=== PATIENT | male | born 1955 | race Caucasian/White ===

== ENCOUNTER 2022-06-22 17:01 | Inpatient (IN) | payer MEDICARE, OTHER ==
--- NOTE | 2022-06-22 17:12 | ED ---
General Adult HPI - General Stated complaint: sob Time Seen by Provider: 06/22/22 17:03 Source: patient, EMS, RN notes reviewed Mode of arrival: EMS Limitations: no limitations - History of Present Illness Initial comments: Patient is a pleasant 66-year-old male presenting to the emergency department with difficulty in breathing. Patient has had mild symptoms over the past 1-2 months. Symptoms worsened significantly the past couple of days. No fever. Occasional cough with sputum however unclear what color. Patient has occasional mild tightness in his chest. No leg pain or leg swelling. No fevers. No history of similar symptoms previously. No history of previous lung disease. - Related Data Home Medications Medication Instructions Recorded Confirmed No Known Home Medications 06/22/22 06/22/22 Allergies Allergy/AdvReac Type Severity Reaction Status Date / Time No Known Allergies Allergy Verified 06/22/22 18:52 Review of Systems ROS Statement: Those systems with pertinent positive or pertinent negative responses have been documented in the HPI. ROS Other: All systems not noted in ROS Statement are negative. 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 Absent: tenderness Extremities exam: Present: normal inspection. Absent: pedal edema, calf tenderness Back exam: Present: normal inspection Neurological exam: Present: alert Psychiatric exam: Present: normal affect, normal mood Skin exam: Present: normal color Course Vital Signs 06/22/22 06/22/22 06/22/22 17:03 17:11 17:33 Temperature 97.9 F Pulse Rate 114 H 110 H Respiratory 24 24 20 Rate Blood Pressure 147/90 113/61 O2 Sat by Pulse 89 L 96 Oximetry 06/22/22 06/22/22 18:36 19:26 Temperature Pulse Rate 105 H 104 H Respiratory 18 20 Rate Blood Pressure 129/76 135/84 O2 Sat by Pulse 95 93 L Oximetry EKG Findings - EKG Comments: EKG Findings:: Sinus tachycardia 114. TX 142. QRS 85. QT 275. QTc 343. Normal axis. Normal QRS. Nonspecific T waves. Premature supraventricular complex as are present. Medical Decision Making - Medical Decision Making Patient reevaluated. Patient updated. Case discussed with Dr. Robert, who will admit covered Dr. Canseco. Dr. quesada did see patient in the ed, updated on ct - Lab Data Result diagrams: 06/22/22 17:29 06/22/22 17:29 Lab Results 06/22/22 06/22/22 06/22/22 Range/Units 17:29 17:29 17:29 WBC 12.5 H (3.8-10.6) k/uL RBC 4.72 (4.30-5.90) m/uL Hgb 14.1 (13.0-17.5) gm/dL Hct 43.6 (39.0-53.0) % MCV 92.4 (80.0-100.0) fL MCH 29.8 (25.0-35.0) pg MCHC 32.3 (31.0-37.0) g/dL RDW 13.1 (11.5-15.5) % Plt Count 190 (150-450) k/uL MPV 6.8 Neutrophils % 80 % Lymphocytes % 12 % Monocytes % 5 % Eosinophils % 2 % Basophils % 0 % Neutrophils # 10.0 H (1.3-7.7) k/uL Lymphocytes # 1.5 (1.0-4.8) k/uL Monocytes # 0.6 (0-1.0) k/uL Eosinophils # 0.3 (0-0.7) k/uL Basophils # 0.1 (0-0.2) k/uL PT (9.0-12.0) sec INR (<1.2) APTT (22.0-30.0) sec D-Dimer (<0.60) mg/L FEU Sodium 139 (137-145) mmol/L Potassium 4.0 (3.5-5.1) mmol/L Chloride 108 H (98-107) mmol/L Carbon Dioxide 20 L (22-30) mmol/L Anion Gap 11 mmol/L BUN 12 (9-20) mg/dL Creatinine 0.80 (0.66-1.25) mg/dL Est GFR (CKD-EPI)AfAm >90 (>60 ml/min/1.73 sqM) Est GFR (CKD-EPI)NonAf >90 (>60 ml/min/1.73 sqM) Glucose 133 H (74-99) mg/dL Plasma Lactic Acid Kevin 1.7 (0.7-2.0) mmol/L Calcium 8.8 (8.4-10.2) mg/dL Total Bilirubin 0.8 (0.2-1.3) mg/dL AST 73 H (17-59) U/L ALT 56 H (4-49) U/L Alkaline Phosphatase 125 (38-126) U/L Troponin I (0.000-0.034) ng/mL NT-Pro-B Natriuret Pep pg/mL Total Protein 7.1 (6.3-8.2) g/dL Albumin 3.9 (3.5-5.0) g/dL Coronavirus (PCR) (Not Detectd) Influenza Type A RNA (Not Detectd) Influenza Type B (PCR) (Not Detectd) 06/22/22 06/22/22 06/22/22 Range/Units 17:29 17:29 17:29 WBC (3.8-10.6) k/uL RBC (4.30-5.90) m/uL Hgb (13.0-17.5) gm/dL Hct (39.0-53.0) % MCV (80.0-100.0) fL MCH (25.0-35.0) pg MCHC (31.0-37.0) g/dL RDW (11.5-15.5) % Plt Count (150-450) k/uL MPV Neutrophils % % Lymphocytes % % Monocytes % % Eosinophils % % Basophils % % Neutrophils # (1.3-7.7) k/uL Lymphocytes # (1.0-4.8) k/uL Monocytes # (0-1.0) k/uL Eosinophils # (0-0.7) k/uL Basophils # (0-0.2) k/uL PT (9.0-12.0) sec INR (<1.2) APTT (22.0-30.0) sec D-Dimer (<0.60) mg/L FEU Sodium (137-145) mmol/L Potassium (3.5-5.1) mmol/L Chloride (98-107) mmol/L Carbon Dioxide (22-30) mmol/L Anion Gap mmol/L BUN (9-20) mg/dL Creatinine (0.66-1.25) mg/dL Est GFR (CKD-EPI)AfAm (>60 ml/min/1.73 sqM) Est GFR (CKD-EPI)NonAf (>60 ml/min/1.73 sqM) Glucose (74-99) mg/dL Plasma Lactic Acid Kevin (0.7-2.0) mmol/L Calcium (8.4-10.2) mg/dL Total Bilirubin (0.2-1.3) mg/dL AST (17-59) U/L ALT (4-49) U/L Alkaline Phosphatase (38-126) U/L Troponin I 0.113 H* (0.000-0.034) ng/mL NT-Pro-B Natriuret Pep 499 pg/mL Total Protein (6.3-8.2) g/dL Albumin (3.5-5.0) g/dL Coronavirus (PCR) (Not Detectd) Influenza Type A RNA Not Detected (Not Detectd) Influenza Type B (PCR) Not Detected (Not Detectd) 06/22/22 06/22/22 Range/Units 17:29 18:45 WBC (3.8-10.6) k/uL RBC (4.30-5.90) m/uL Hgb (13.0-17.5) gm/dL Hct (39.0-53.0) % MCV (80.0-100.0) fL MCH (25.0-35.0) pg MCHC (31.0-37.0) g/dL RDW (11.5-15.5) % Plt Count (150-450) k/uL MPV Neutrophils % % Lymphocytes % % Monocytes % % Eosinophils % % Basophils % % Neutrophils # (1.3-7.7) k/uL Lymphocytes # (1.0-4.8) k/uL Monocytes # (0-1.0) k/uL Eosinophils # (0-0.7) k/uL Basophils # (0-0.2) k/uL PT 11.1 (9.0-12.0) sec INR 1.0 (<1.2) APTT 18.8 L (22.0-30.0) sec D-Dimer 15.31 H (<0.60) mg/L FEU Sodium (137-145) mmol/L Potassium (3.5-5.1) mmol/L Chloride (98-107) mmol/L Carbon Dioxide (22-30) mmol/L Anion Gap mmol/L BUN (9-20) mg/dL Creatinine (0.66-1.25) mg/dL Est GFR (CKD-EPI)AfAm (>60 ml/min/1.73 sqM) Est GFR (CKD-EPI)NonAf (>60 ml/min/1.73 sqM) Glucose (74-99) mg/dL Plasma Lactic Acid Kevin (0.7-2.0) mmol/L Calcium (8.4-10.2) mg/dL Total Bilirubin (0.2-1.3) mg/dL AST (17-59) U/L ALT (4-49) U/L Alkaline Phosphatase (38-126) U/L Troponin I (0.000-0.034) ng/mL NT-Pro-B Natriuret Pep pg/mL Total Protein (6.3-8.2) g/dL Albumin (3.5-5.0) g/dL Coronavirus (PCR) Not Detected (Not Detectd) Influenza Type A RNA (Not Detectd) Influenza Type B (PCR) (Not Detectd) - Radiology Data Radiology results: report reviewed (CT positive for large bilateral pulmonary emboli, no cardiac strain as discussed with radiologist. Also infiltrates), image reviewed (Chest x-ray shows some increase in interstitial density in the left side) Critical Care Time Critical Care Time: Yes Total Critical Care Time: 32 Disposition Clinical Impression: Pulmonary embolism, Pneumonia Disposition: ADMITTED IP TO THIS HOSP Condition: Serious Is patient prescribed a controlled substance at d/c from ED?: No Referrals: Jakob Canseco MD [Primary Care Provider] - 1-2 days Time of Disposition: 20:56
[2022-06-22 17:37] LABS: Basophils # (A) 0.1 k/uL (0-0.2); Basophils % (A) 0 %; Eosinophils # (A) 0.3 k/uL (0-0.7); Eosinophils % (A) 2 %; HCT 43.6 % (39.0-53.0); HGB 14.1 gm/dL (13.0-17.5); Lymphocytes # (A) 1.5 k/uL (1.0-4.8); Lymphocytes % (A) 12 %; MCH 29.8 pg (25.0-35.0); MCHC 32.3 g/dL (31.0-37.0); MCV 92.4 fL (80.0-100.0); Mean Platelet Volume 6.8; Monocytes # (A) 0.6 k/uL (0-1.0); Monocytes % (A) 5 %; Neutrophils % (A) 80 %; Platelet Count 190 k/uL (150-450); RBC 4.72 m/uL (4.30-5.90); RDW 13.1 % (11.5-15.5); WBC 12.5 k/uL (3.8-10.6)
[2022-06-22 17:46] LABS: ALT 56 U/L (4-49); AST 73 U/L (17-59); African American GFR (CKD) >90 (>60 ml/min/1.73 sqM); Albumin 3.9 g/dL (3.5-5.0); Alkaline Phosphatase 125 U/L (38-126); Anion Gap 11 mmol/L; Blood Urea Nitrogen 12 mg/dL (9-20); Calcium 8.8 mg/dL (8.4-10.2); Carbon Dioxide 20 mmol/L (22-30); Chloride 108 mmol/L (98-107); Glucose 133 mg/dL (74-99); Non-African American GFR(CKD) >90 (>60 ml/min/1.73 sqM); Sodium 139 mmol/L (137-145); Total Bilirubin 0.8 mg/dL (0.2-1.3); Total Protein 7.1 g/dL (6.3-8.2)
--- NOTE | 2022-06-22 18:11 | XR ---
EXAMINATION TYPE: XR chest 2V DATE OF EXAM: 06/22/2022 COMPARISON: NONE HISTORY: Short of breath TECHNIQUE: 2 views FINDINGS: There is coarse interstitial density in the lungs. Heart size is normal. No heart failure. No pleural effusion. IMPRESSION: There is some coarse predominantly interstitial infiltrate in the left lung more than the right. No heart failure seen. This could be acute pneumonia.
[2022-06-22 19:25] LABS: Prothrombin Time 11.1 sec (9.0-12.0)
[2022-06-22 19:35] LABS: Partial Thromboplastin Time 18.8 sec (22.0-30.0)
--- NOTE | 2022-06-22 20:39 | CT ---
EXAMINATION TYPE: CT angio chest DATE OF EXAM: 06/22/2022 COMPARISON: None HISTORY: Dyspnea CT DLP: 514.4 mGycm Automated exposure control for dose reduction was used. CONTRAST: Performed with IV Contrast, patient injected with 100 mL of Isovue 370. There are 3-D post processed images. There is patchy bilateral pulmonary interstitial and airspace infiltrates. There is some coalescent d ensity left upper lobe. No mediastinal adenopathy. Thoracic aorta is intact. No aneurysm. No dissecti on. There are multiple large filling defects in the pulmonary arteries. Emboli are larger on the righ t side compared to the left. There is involvement of the upper and lower lobes. The bony thorax is intact. Sternum is intact. IMPRESSION: Multiple large bilateral pulmonary emboli. No evidence of right heart strain. No evidence of any sign ificant cardiomegaly. Bilateral patchy pneumonia. The exam was discussed with emergency room attending staff at 8:35 PM.
[2022-06-22] MEDS ORDERED: HEPARIN SODIUM 1,000 UN/ML (10ML VL) IV PRN (20:45)
[2022-06-22] MEDS ORDERED: HEPARIN SODIUM 1,000 UN/ML (10ML VL) IV ONE (20:45)
[2022-06-22] MEDS ORDERED: AZITHROMYCIN 500 MG in SODIUM CHLORIDE 0.9% 250 ML IVPB STA (20:57)
[2022-06-22] MEDS ORDERED: IPRATROPIUM-ALBUTEROL 3 ML NEB INHALATION PRN (20:57)
[2022-06-22] MEDS ORDERED: PNEUMONIA PROTOCOL UTILIZED 1 EACH MISC PO PRN (20:57)
[2022-06-22] MEDS: HEPARIN SOD,PORK IN 0.45% NACL 25,000 UNIT in 0.45% NACL 1 250ML.BAG IV SCH (21:01)
--- NOTE | 2022-06-22 22:38 | P.HPIM ---
History of Present Illness H&P Date: 06/22/22 The patient is a 66-year-old male with no known PMH who presents to the emergency room with complaints of shortness of breath. The patient reports that he has been experiencing gradually worsening exercise tolerance over the past 2 months, but reports that earlier today as he was performing some errands, she suddenly developed severe shortness of breath, prompted him to call 911. He checked his SpO2 at home which was no mid 80s, which was subsequently confirmed by EMS upon arrival. The patient denied experiencing chest discomfort. Reports a mild nonproductive cough also ongoing for the past 2 months. Denied nausea, vomiting, diaphoresis, fever, chills. Denied experiencing lower extremity swelling or pain. Chest CTA in the emergency room revealed multiple large bilateral pulmonary emboli with no evidence of right heart strain and no evidence of significant cardiomegaly. There was bilateral patchy pneumonia noted. EKG reveals sinus tachycardia with PVCs at 1 14 bpm with T-wave f lattening in leads V4 to V6 and inversion in leads 3 and aVF. The patient denied personal or family history of blood clots. Denied recent travel or prolonged immobilization. Laboratory evaluation was remarkable for troponin of 0.113, W count 12.5, with the coronavirus PCR negative. Review of systems: Pertinent positives and negatives as discussed in HPI, a complete review of systems was performed and all other systems are negative. Physical examination: General: non toxic, no distress, appears at stated age, obese Derm: no unusual rashes/lesions, warm Head: atraumatic, normocephalic, symmetric Eyes: EOMI, no lid lag, anicteric sclera, pupils equal round reactive to light ENT: Nose and ears atraumatic Neck: No cervical lymphadenopathy, trachea midline, supple Mouth: no lip lesion, mucus membranes moist Cardiovascular: S1S2 reg, no murmur, positive dorsalis pedis pulse bilateral, no edema Lungs: CTA bilateral, no rhonchi, no rales, no accessory muscle use Abdominal: soft, nontender to palpation, no guarding Ext: muscle strength 5 out of 5 in all 4 extremities grossly, no gross muscle atrophy, no contractures, Neuro: CN II-XI grossly intact, no gross focal neuro deficits Psych: Alert, oriented, appropriate affect Assessment/plan Acute large bilateral unprovoked pulmonary emboli -Patient started on heparin infusion -Unclear etiology as patient denied any family history of blood clots and he is a lifelong nonsmoker -Pulmonary consulted Acute hypoxic respiratory failure -As per above Community-acquired pneumonia -Continue with azithromycin and ceftriaxone DVT prophylaxis -Heparin infusion The patient is admitted with an anticipated greater than 2 midnight stay for evaluation of acute PE CODE STATUS: Full Code Discussed with: Patient Anticipated discharge date: 06/[address]: Home Past Medical History Past Medical History: No Reported History History of Any Multi-Drug Resistant Organisms: None Reported Past Surgical History: No Surgical Hx Reported Additional Past Surgical History / Comment(s): 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, laser eye surgery, Past Psychological History: No Psychological Hx Reported Smoking Status: Never smoker Past Alcohol Use History: Occasional Past Drug Use History: None Reported - Past Family History Mother Family Medical History: Hyperlipidemia Medications and Allergies Home Medications Medication Instructions Recorded Confirmed Type No Known Home Medications 06/22/22 06/22/22 History Allergies Allergy/AdvReac Type Severity Reaction Status Date / Time No Known Allergies Allergy Verified 06/22/22 18:52 Physical Exam Vitals: Vital Signs Temp Pulse Resp BP Pulse Ox 06/22/22 19:26 104 H 20 135/84 93 L 06/22/22 18:36 105 H 18 129/76 95 06/22/22 17:33 110 H 20 113/61 96 06/22/22 17:11 24 06/22/22 17:03 97.9 F 114 H 24 147/90 89 L Intake and Output 06/22/22 06/22/22 06/22/22 06:59 14:59 22:59 Other: Weight 117.934 kg Results CBC & Chem 7: 06/22/22 17:29 06/22/22 17:29 Labs: Abnormal Lab Results - Last 24 Hours (Table) 06/22/22 06/22/22 06/22/22 Range/Units 17:29 17:29 17:29 WBC 12.5 H (3.8-10.6) k/uL Neutrophils # 10.0 H (1.3-7.7) k/uL APTT (22.0-30.0) sec D-Dimer (<0.60) mg/L FEU Chloride 108 H (98-107) mmol/L Carbon Dioxide 20 L (22-30) mmol/L Glucose 133 H (74-99) mg/dL AST 73 H (17-59) U/L ALT 56 H (4-49) U/L Troponin I 0.113 H* (0.000-0.034) ng/mL 06/22/22 Range/Units 18:45 WBC (3.8-10.6) k/uL Neutrophils # (1.3-7.7) k/uL APTT 18.8 L (22.0-30.0) sec D-Dimer 15.31 H (<0.60) mg/L FEU Chloride (98-107) mmol/L Carbon Dioxide (22-30) mmol/L Glucose (74-99) mg/dL AST (17-59) U/L ALT (4-49) U/L Troponin I (0.000-0.034) ng/mL
[2022-06-23 02:59] LABS: Basophils % (A) 0 %; Eosinophils # (A) 0.1 k/uL (0-0.7); Eosinophils % (A) 1 %; HCT 40.1 % (39.0-53.0); HGB 13.4 gm/dL (13.0-17.5); Lymphocytes # (A) 1.7 k/uL (1.0-4.8); Lymphocytes % (A) 19 %; MCH 31.2 pg (25.0-35.0); MCHC 33.4 g/dL (31.0-37.0); MCV 93.2 fL (80.0-100.0); Mean Platelet Volume 6.9; Monocytes # (A) 0.5 k/uL (0-1.0); Monocytes % (A) 6 %; Neutrophils # (A) 6.8 k/uL (1.3-7.7); Neutrophils % (A) 73 %; Platelet Count 197 k/uL (150-450); RDW 13.5 % (11.5-15.5); WBC 9.4 k/uL (3.8-10.6)
--- NOTE | 2022-06-23 08:37 | XR ---
EXAMINATION TYPE: XR chest 2V DATE OF EXAM: 06/23/2022 COMPARISON: Chest x-ray and CT 06/22/2022 HISTORY: Pneumonia TECHNIQUE: Frontal and lateral views of the chest are obtained. FINDINGS: Findings are similar to prior exam. Right hemidiaphragm is elevated. Cardiac mediastinal s ilhouette is stable. Airspace disease is present predominantly in the left upper lobe. No pneumothora x or pleural effusion. IMPRESSION: Correlate for pneumonia or pulmonary infarct.
--- NOTE | 2022-06-23 10:42 | P.CRDCN ---
History of Present Illness History of present illness: HISTORY OF PRESENTING ILLNESS This is a pleasant 66-year-old male past medical history significant for basal cell carcinoma skin. 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 We have been asked to see in consultation for bilateral pulmonary embolism. Patient presents to the emergency department for worsening shortness of breath. He states that he's been having short of breath for the past month, however yesterday he had uncontrolled shortness of breath. He also endorses some nonradiating, non exertional tightness in his chest, it is worse with breathing. He denies any lightheadedness, dizziness, syncope or near syncope. He denies any nausea, vomiting, abdominal pain. He checks his oxygen saturations at home and they were in the mid 80%s, EMS was called and patient was brought to the emergency department. Patient denies any prolonged travel. Denies any history of clotting disorder. No family history of hematologic disorders. She denies any history of CAD, DC, stroke, diabetes, hypertension, dyslipidemia. On admission patient's d- dimer is elevated 15.3. CT revealed multiple large bilateral pulmonary emboli. DIAGNOSTICS * EKG reveals sinus tachycardia, heart rate 114, PACs noted. Nonspecific STT wave abnormalities. * Telemetry tracings indicate sinus rhythm, heart rate in the 80s * CTA- multiple large bilateral pulmonary emboli, report states no evidence of right heart strain. No evidence of any significant cardiomegaly. Bilateral patchy pneumonia reported. * Laboratory reviewed, WBC 9.4, hemoglobin 13.4, platelets 197, d-dimer 15.31, sodium 139, potassium 4.0, BUN 12, serum current 0.8, AST 73, ALT 53, troponin 0.11, 0.17, proBNP 499, COVID-19 negative, influenza negative * Current home cardiac medications include none. REVIEW OF SYSTEMS At the time of my exam: CONSTITUTIONAL: Denies fever or chills. CARDIOVASCULAR: Denies chest pain, +shortness of breath, +orthopnea, Denies PND or palpitations. RESPIRATORY: Denies cough. GASTROINTESTINAL: Denies abdominal pain, diarrhea, constipation, nausea or vomiting. MUSCULOSKELETAL: Denies myalgias. NEUROLOGIC: Denies numbness, tingling, headacbe or weakness. ENDOCRINE: Denies fatigue, weight change, polydipsia or polyurina. GENITOURINARY: Denies burning, hematuria or urgency with micturation. HEMATOLOGIC: Denies history of anemia or bleeding. PHYSICAL EXAMINATION Blood pressure 115/70, heart rate 84, afebrile, saturation 97% on 8 L high flow nasal cannula CONSTITUTIONAL: No apparent distress. HEENT: Head is normocephalic. Pupils are equal, round. Sclerae anicteric. Mucous membranes of the mouth are moist. No JVD. No carotid bruit. CHEST EXAMINATION: Lungs are diminished bilaterally to auscultation. No chest wall tenderness is noted on palpation or with deep breathing. HEART EXAMINATION: Regular rate and rhythm. S1, S2 heard. No murmurs, gallops or rub. ABDOMEN: Soft, nontender. Positive bowel sounds. EXTREMITIES: 2+ peripheral pulses, no lower extremity edema and no calf tenderness. NEUROLOGIC EXAMINATION: Patient is awake, alert and oriented x3. ASSESSMENT Bilateral Pulmonary Emboli, unprovoked Elevated troponin, likely secondary to above Acute hypoxic respiratory failure, likely secondary to above Right heart strain History of basal cell carcinoma skin PLAN 2D echocardiogram reviewed at bedside by Dr. Amezcua and Right heart strain noted. Await full read as well. Plan for EKOS procedure today with Dr. Amezcua We have discussed the risks, benefits and alternative therapies for the above- mentioned procedure and for both sedation/analgesia as well as necessary blood product administration, if indicated, as they pertain to this patient. The patient has indicated understanding and acceptance of the risks and procedures discussed. Questions have been answered appropriately and [] is agreeable to move forward with the above-stated procedure. Continue IV heparin drip Further recommendations based on clinical course Nurse practitioner note has been reviewed by physician. Signing provider agrees with the documented findings, assessment, and plan of care. 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2 F 84 20 115/70 97 06/23/22 04:00 98.2 F 86 14 99/62 95 06/23/22 00:00 98.4 F 96 12 98/59 95 06/22/22 22:17 98.2 F 103 H 16 148/75 93 L 06/22/22 21:47 98.1 F 98 20 117/90 95 06/22/22 19:26 104 H 20 135/84 93 L 06/22/22 18:36 105 H 18 129/76 95 06/22/22 17:33 110 H 20 113/61 96 06/22/22 17:11 24 06/22/22 17:03 97.9 F 114 H 24 147/90 89 L Intake and Output 06/22/22 06/23/22 06/23/22 22:59 06:59 14:59 Intake Total 150.719 258.935 Output Total 425 Balance 150.719 -166.065 Intake: Intake, IV Titration 150.719 78.935 Amount Heparin Sod,Pork in 0.45% 150.719 78.935 NaCl 25,000 unit In 0.45 % NaCl 1 250ml.bag @ 18 UNITS/KG/HR 21.228 mls/hr IV .[id number] [facility] Rx#: [id number] Oral 180 Output: Urine 425 Other: Voiding Method Toilet # Voids 1 2 Weight 117.934 kg Results 06/23/22 02:14 06/22/22 17:29 Cardiac Enzymes 06/22/22 06/22/22 Range/Units 17:29 17:29 AST 73 H (17-59) U/L Troponin I 0.113 H* (0.000-0.034) ng/mL Coagulation 06/22/22 06/23/22 06/23/22 Range/Units 18:45 02:14 07:17 PT 11.1 (9.0-12.0) sec APTT 18.8 L 83.8 H 92.1 H (22.0-30.0) sec CBC 06/22/22 06/23/22 Range/Units 17:29 02:14 WBC 12.5 H 9.4 (3.8-10.6) k/uL RBC 4.72 4.30 (4.30-5.90) m/uL Hgb 14.1 13.4 (13.0-17.5) gm/dL Hct 43.6 40.1 (39.0-53.0) % Plt Count 190 197 (150-450) k/uL Comprehensive Metabolic Panel 06/22/22 Range/Units 17:29 Sodium 139 (137-145) mmol/L Potassium 4.0 (3.5-5.1) mmol/L Chloride 108 H (98-107) mmol/L Carbon Dioxide 20 L (22-30) mmol/L BUN 12 (9-20) mg/dL Creatinine 0.80 (0.66-1.25) mg/dL Glucose 133 H (74-99) mg/dL Calcium 8.8 (8.4-10.2) mg/dL AST 73 H (17-59) U/L ALT 56 H (4-49) U/L Alkaline Phosphatase 125 (38-126) U/L Total Protein 7.1 (6.3-8.2) g/dL Albumin 3.9 (3.5-5.0) g/dL Current Medications Generic Name Dose Route Start Last Admin Trade Name Freq PRN Reason Stop Dose Admin Albuterol/Ipratropium 3 ml 06/22/22 20:57 Ipratropium-Albuterol 3 Ml Neb INHALATION RT-Q4H PRN shortness of breath Azithromycin 500 mg 06/23/22 21:00 Azithromycin 500 Mg Tab PO 06/24/22 09:01 DAILY [facility] Protocol Heparin Sodium (Porcine) 0 unit 06/22/22 20:45 Heparin Sodium 1,000 Un/Ml (10ml Vl) IV PER PROTOCOL PRN Low PTT Protocol Heparin Sodium/Sodium Chloride 250 mls @ 21.228 mls/hr 06/22/22 20:45 06/23/22 09:22 25,000 unit/ Sodium Chloride IV 13 units/kg/hr .[id number] [facility] 15.331 mls/hr Titration Protocol 18 UNITS/KG/HR Ceftriaxone Sodium 2 gm/ 50 mls @ 100 mls/hr 06/24/22 00:00 Sodium Chloride IVPB Q24H [facility] Protocol Miscellaneous Information 1 each 06/22/22 20:57 Pneumonia Protocol Utilized 1 Each Misc PO ONCE PRN Per Protocol Intake and Output 06/22/22 06/23/22 06/23/22 22:59 06:59 14:59 Intake Total 150.719 258.935 Output Total 425 Balance 150.719 -166.065 Intake: Intake, IV Titration 150.719 78.935 Amount Heparin Sod,Pork in 0.45% 150.719 78.935 NaCl 25,000 unit In 0.45 % NaCl 1 250ml.bag @ 18 UNITS/KG/HR 21.228 mls/hr IV .[id number] [facility] Rx#: [id number] Oral 180 Output: Urine 425 Other: Voiding Method Toilet # Voids 1 2 Weight 117.934 kg 06/23/22 02:14 06/22/22 17:29
[2022-06-23] MEDS: HEPARIN SOD,PORK IN 0.45% NACL 25,000 UNIT in 0.45% NACL 1 250ML.BAG IV SCH ×6 (10:43→12:46)
[2022-06-23] MEDS ORDERED: IV FLUID CONTINUATION 1,000 ML IV ONE (11:03)
[2022-06-23 11:18] LABS: African American GFR (CKD) >90 (>60 ml/min/1.73 sqM); Anion Gap 8 mmol/L; Blood Urea Nitrogen 10 mg/dL (9-20); Calcium 8.3 mg/dL (8.4-10.2); Carbon Dioxide 20 mmol/L (22-30); Chloride 111 mmol/L (98-107); Glucose 118 mg/dL (74-99); Non-African American GFR(CKD) 88 (>60 ml/min/1.73 sqM); Sodium 139 mmol/L (137-145)
[2022-06-23] MEDS ORDERED: MIDAZOLAM 2 MG/2 ML VIAL IV ONE (11:28)
[2022-06-23] MEDS ORDERED: LIDOCAINE 1% INJ 10MG/ML (30 ML VIAL-PF) SQ ONE (11:28)
[2022-06-23 11:49] LABS: INR 1.1 (<1.2)
[2022-06-23] MEDS: ALTEPLASE 10 MG in SODIUM CHLORIDE 0.9% 90 ML IV ONE ×9 (11:56→12:50)
[2022-06-23] MEDS: SODIUM CHLORIDE 0.9% 1,000 ML IV SCH ×7 (11:57→12:45)
[2022-06-23] MEDS ORDERED: ACETAMINOPHEN TAB 325 MG TAB PO PRN (12:12)
[2022-06-23] MEDS ORDERED: ONDANSETRON 4 MG/2 ML VIAL IVP PRN (12:12)
--- NOTE | 2022-06-23 12:16 | P.CNPUL ---
History of Present Illness Consult date: 06/23/22 Requesting physician: Melody Robert Reason for consult: dyspnea, chest pain, hypoxemia, pulmonary embolism, abnormal CXR/CT Chief complaint: Shortness of breath. History of present illness: Pulmonary consult dated 06/23/2022. 66-year-old male who presented to the emergency department on June 22, complaining of shortness of breath. The patient apparently has been having shortness of breath for a period of time maybe, 1-2 months prior to admission. Over the last couple of days, the shortness of breath has worsened. There was no fever. He did have some occasional cough with some minimal phlegm. Also had some mild tightness in his chest, without any leg pain or swelling. The patient has no prior history of any lung issues. The patient is a lifelong nonsmoker. He apparently had some eye surgery in the past. The patient apparently has no past medical history. He also has no ALLERGIES, and takes no medications on a regular basis at home. The patient is currently on 8 L high flow nasal O2, IV heparin, and saline at 20 mL an hour. The patient is to have a catheter directe d TPA and ultrasonic dissolution of his pulmonary emboli, by cardiology today. His CT angiogram did reveal bilateral pulmonary emboli, and possibly some patchy pneumonia. White count 9.4, with a normal hemoglobin, hematocrit, and platelet count. PT 12, INR 1.1, and PTT is 92.1. D-dimer was 15.31. Sodium 139, potassium 4, chlorides 111, CO2 20, with a normal BUN and creatinine. Troponins were 0.113 and 0.171. N-terminal proBNP was 499. Nasal swab for coronavirus was negative. CT angiogram showed large and multiple bilateral pulmonary emboli, without evidence of right heart strain. There is also bilateral patchy pneumonia. Review of Systems REVIEW OF SYSTEMS: CONSTITUTIONAL: [Negative.] NEUROLOGIC: [ Negative.] HEENT: Chest tightness. CARDIAC: Shortness of breath, cough, and minimal phlegm production. PULMONARY: [Negative.] GI: [Negative.] : [Negative.] RHEUMATOLOGIC: [ Negative.] IMMUNOLOGIC: [ Negative.] ENDOCRINE: [Negative. ] DERMATOLOGIC: [Negative.] Past Medical History Past Medical History: No Reported History History of Any Multi-Drug Resistant Organisms: None Reported Past Surgical History: No Surgical Hx Reported Additional Past Surgical History / Comment(s): 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, laser eye surgery, Past Psychological History: No Psychological Hx Reported Smoking Status: Never smoker Past Alcohol Use History: Occasional Past Drug Use History: None Reported - Past Family History Mother Family Medical History: Hyperlipidemia Medications and Allergies Home Medications Medication Instructions Recorded Confirmed Type No Known Home Medications 06/22/22 06/22/22 History Allergies Allergy/AdvReac Type Severity Reaction Status Date / Time No Known Allergies Allergy Verified 06/22/22 18:52 Physical Exam Osteopathic Statement: *. No significant issues noted on an osteopathic structural exam other than those noted in the History and Physical/Consult. Vitals: Vital Signs Temp Pulse Pulse Resp BP BP Pulse Ox 06/23/22 10:33 98.2 F 84 20 115/70 97 06/23/22 08:00 98.2 F 84 20 115/70 97 06/23/22 04:00 98.2 F 86 14 99/62 95 06/23/22 00:00 98.4 F 96 12 98/59 95 06/22/22 22:17 98.2 F 103 H 16 148/75 93 L 06/22/22 21:47 98.1 F 98 20 117/90 95 06/22/22 19:26 104 H 20 135/84 93 L 06/22/22 18:36 105 H 18 129/76 95 06/22/22 17:33 110 H 20 113/61 96 06/22/22 17:11 24 06/22/22 17:03 97.9 F 114 H 24 147/90 89 L Intake and Output 06/22/22 06/23/22 06/23/22 22:59 06:59 14:59 Intake Total 150.719 479.281 Output Total 425 Balance 150.719 54.281 Intake: IV 200 Intake, IV Titration 150.719 99.281 Amount Heparin Sod,Pork in 0.45% 150.719 99.281 NaCl 25,000 unit In 0.45 % NaCl 1 250ml.bag @ 18 UNITS/KG/HR 21.228 mls/hr IV .[id number] [facility] Rx#: [id number] Oral 180 Output: Urine 425 Other: Voiding Method Toilet # Voids 1 2 Weight 117.934 kg No acute distress, oriented 3. Currently on 8 L high flow nasal cannula. No use of accessory muscles. HEENT examination is grossly unremarkable. Neck supple. Full range of motion. No adenopathy thyromegaly or neck vein distention. Cardiovascular examination reveals regular rhythm rate. S1-S2 normal. No S3 or S4. No discernible murmur noted. Heart rate 84 bpm. Lungs reveal mostly normal examination. Minimal scattered rhonchi. No wheezes or crackles. Saturations are 97%. Abdomen soft bowel sounds are heard. No masses or tenderness. Extremities are intact. No cyanosis clubbing or edema. Skin is without rash or lesion. Neurologic examination is brief but nonfocal. Results - Laboratory Findings CBC and BMP: 06/23/22 02:14 06/23/22 07:17 PT/INR, D-dimer PT 12.0 sec (9.0-12.0) 06/23/22 07:17 INR 1.1 (<1.2) 06/23/22 07:17 D-Dimer 15.31 mg/L FEU (<0.60) H 06/22/22 18:45 Abnormal lab findings: Abnormal Labs 06/22/22 06/22/22 06/22/22 17:29 17:29 17:29 WBC 12.5 H Neutrophils # 10.0 H APTT D-Dimer Chloride 108 H Carbon Dioxide 20 L Glucose 133 H Calcium AST 73 H ALT 56 H Troponin I 0.113 H* 06/22/22 06/23/22 06/23/22 18:45 02:14 07:17 WBC Neutrophils # APTT 18.8 L 83.8 H 92.1 H D-Dimer 15.31 H Chloride Carbon Dioxide Glucose Calcium AST ALT Troponin I 06/23/22 06/23/22 07:17 07:17 WBC Neutrophils # APTT D-Dimer Chloride 111 H Carbon Dioxide 20 L Glucose 118 H Calcium 8.3 L AST ALT Troponin I 0.171 H* - Diagnostic Findings Chest x-ray: image reviewed CT scan - chest: image reviewed Assessment and Plan Assessment: Acute hypoxemic respiratory failure secondary to pulmonary embolism, possibly complicated by pneumonia. Anticipated catheter directed TPA and ultrasonic dissolution of the pulmonary embolism (EKOS). No evidence of right heart strain on the patient's CTA. No prior history of lung disease. No past medical history to speak of. Plan: Plan dated 06/23/2022. The patient is on azithromycin and Rocephin. The patient will be transferred to the intensive care unit. Additional recommendations and suggestions are forthcoming. The ER physician has written for [facility]. We will continue to follow and make recommendations were appropriate. Labs, x-rays, and medications are all reviewed. Prognosis is guarded. Time with Patient: Greater than 30
--- NOTE | 2022-06-23 12:19 | P.PCN ---
Date of Procedure: 06/23/22 Operative Findings: Placement of ultrasonic catheter in the right and left pulmonary artery Indication This is a 66-year-old gentleman who presented to the hospital with shortness of breath and he was diagnosed with submassive a PE. He underwent initially a computed tomography scan and subsequently an echocardiogram which showed dilated right ventricle. His troponin also was abnormal. In the light of that and in the light that she continues to be short of breath requiring high flow oxygen the placement of ultrasonic catheter was advised. Approach Right common femoral vein Complication None Level of sedation Moderate to sedation length of 28 minutes Procedure description After obtaining an informed consent the patient was brought to the cardiac crime laboratory analyst. The right common femoral vein was cannulated using micropuncture technique under ultrasound guidance x2 the micropuncture wire passed easily and subsequently I placed 6-Gambian sheath 11 cm at the right common femoral vein. After that and under fluoroscopy guidance and all 35 stiff the Glidewire with a backup support of JR4 catheter was advanced in the IVC all the way to the right atrium and the right ventricle and subsequently the pulmonary artery. Initially the wire went into the left pulmonary vein and subsequently right pulmonary vein. Then we advanced the infusion catheter over 035 wire then I placed the ultrasonic catheter inside the infusion catheter. The procedure was completed without any complication. Postprocedure management The patient will be admitted to the intensive care unit TBA to be infused for 6 hours Follow-up with the patient
[2022-06-23 13:01] LABS: Glucose,Whole Blood 130 mg/dL (70-110)
--- NOTE | 2022-06-23 14:42 | P.PN ---
Subjective Progress Note Date: 06/23/22 (delayed charting seen at 0930) Principal diagnosis: shortness of breath The patient is a 66-year-old male with no known PMH who presented to the emergency room with complaints of shortness of breath. In the emergency department he undwerwent an extensive evaluation. Chest CTA in the emergency room revealed multiple large bilateral pulmonary emboli with no evidence of right heart strain and no evidence of significant cardiomegaly. There was bilateral patchy pneumonia noted. EKG reveals sinus tachycardia. The patient denied personal or family history of blood clots. Denied recent travel or prolonged immobilization. Laboratory evaluation was remarkable for troponin of 0.113, W count 12.5, with the coronavirus PCR negative. He was started on a heparin infusion and antibiotics were continued. Pneumonia. Arrangements were felt to admission. He did require high flow nasal cannula and had persistent tachycardia as well as one episode of hypotension overnight. Morning cardiology was consulted for concerns of possible PE with heart strain. Repeat troponin did increase. Urgent echocardiogram was obtained and reviewed by Dr. Amezcua at bedside and proceeded to take the patient for EKOS. He was seen by pulmonary who recommended continuing Rocephin and Zithromax. Patient seen and examined at bedside. He reports that he has had a cough for the last 2 months without feeling ill. He reports that yesterday he started having sudden onset shortness of breath and chest pressure. He denies any personal or family history of blood clots. He has had a TIA in the past. He does report that he did live outside the country in [place] in the 1970s and was in the . General: Ill-appearing, moderate distress appears at stated age Derm: warm, dry Head: atraumatic, normocephalic, symmetric Eyes: EOMI, no lid lag, anicteric sclera Mouth: no lip lesion, mucus membranes moist Cardiovascular: S1S2 tachycardic, no murmur, positive posterior tibial pulse bilateral, Lungs: +2 with conversational dyspnea, + accessory muscle use, coarse breath sounds bilaterally, no wheezing Abdominal: soft, nontender to palpation, no guarding, no appreciable orga nomegaly Ext: no gross muscle atrophy, no edema, no contractures Neuro: CN II-XI grossly intact, no focal neuro deficits Psych: Alert, oriented, appropriate affect Assessment/plan: Bilateral pulmonary artery embolism with right heart strain on echocardiogram Acute hypoxic respiratory failure Community-acquired pneumonia Elevated troponi due to Pulmonary embolism - I did consult cardiology wtih elevated troponin in the setting of PE, After seeing the patient I contacted Dr. Amezcua who immedatly saw the patinet, reviewed the echo at bedside and coordinated the patient to undergo EKOS. - Patient s/p EKOS - Cardio and pulm recs appreciated - rocephin and zithromax - will need oncology evaluation - needs age appropriate cancer screening and possible hypercoag evaluation - wean O2 as able - tele - Heparin gtt - follow CXR Objective - Vital Signs Vital signs: Vital Signs Temp 98.5 F 06/23/22 12:13 Pulse 81 06/23/22 14:00 Resp 18 06/23/22 14:00 BP 122/80 06/23/22 14:00 Pulse Ox 97 06/23/22 14:00 FiO2 Intake & Output 06/22/22 06/23/22 06/23/22 18:59 06:59 18:59 Intake Total 150.719 899.281 Output Total 425 Balance 150.719 474.281 Weight 117.934 kg 117.934 kg Intake: IV 200 Intake, IV Titration 150.719 519.281 Amount Heparin Sod,Pork in 0.45% 150.719 99.281 NaCl 25,000 unit In 0.45 % NaCl 1 250ml.bag @ 18 UNITS/KG/HR 21.228 mls/hr IV .[id number] [facility] Rx#: [id number] Sodium Chloride 0.9% 1, 140 000 ml @ 35 mls/hr IV . Q24H [facility] Rx#:[id number] Sodium Chloride 0.9% 1, 140 000 ml @ Per Protocol IV .Q0M [facility] Rx#:[id number] Sodium Chloride 0.9% 1, 140 000 ml @ Per Protocol IV .Q0M [facility] Rx#:[id number] Oral 180 Output: Urine 425 Other: Voiding Method Toilet # Voids 2 - Labs CBC & Chem 7: 06/23/22 02:14 06/23/22 07:17 Labs: Abnormal Lab Results - Last 24 Hours (Table) 06/22/22 06/22/22 06/22/22 Range/Units 17:29 17:29 17:29 WBC 12.5 H (3.8-10.6) k/uL Neutrophils # 10.0 H (1.3-7.7) k/uL APTT (22.0-30.0) sec D-Dimer (<0.60) mg/L FEU Chloride 108 H (98-107) mmol/L Carbon Dioxide 20 L (22-30) mmol/L Glucose 133 H (74-99) mg/dL POC Glucose (mg/dL) (70-110) mg/dL Calcium (8.4-10.2) mg/dL AST 73 H (17-59) U/L ALT 56 H (4-49) U/L Troponin I 0.113 H* (0.000-0.034) ng/mL 06/22/22 06/23/22 06/23/22 Range/Units 18:45 02:14 07:17 WBC (3.8-10.6) k/uL Neutrophils # (1.3-7.7) k/uL APTT 18.8 L 83.8 H 92.1 H (22.0-30.0) sec D-Dimer 15.31 H (<0.60) mg/L FEU Chloride (98-107) mmol/L Carbon Dioxide (22-30) mmol/L Glucose (74-99) mg/dL POC Glucose (mg/dL) (70-110) mg/dL Calcium (8.4-10.2) mg/dL AST (17-59) U/L ALT (4-49) U/L Troponin I (0.000-0.034) ng/mL 06/23/22 06/23/22 06/23/22 Range/Units 07:17 07:17 12:59 WBC (3.8-10.6) k/uL Neutrophils # (1.3-7.7) k/uL APTT (22.0-30.0) sec D-Dimer (<0.60) mg/L FEU Chloride 111 H (98-107) mmol/L Carbon Dioxide 20 L (22-30) mmol/L Glucose 118 H (74-99) mg/dL POC Glucose (mg/dL) 130 H (70-110) mg/dL Calcium 8.3 L (8.4-10.2) mg/dL AST (17-59) U/L ALT (4-49) U/L Troponin I 0.171 H* (0.000-0.034) ng/mL
--- NOTE | 2022-06-23 16:53 | CA ---
Transthoracic Echo Report Name: Kishor Ozuna Age: 66 Gender: M : 1955 Exam Date: 06/23/2022 09:54 Exam Location: [facility] Ht (in): 71 Wt (lb): 260 Ordering Physician: Neena Prabhakar DO Attending/Referring Phys: [id number], Aki Clerical Office Worker Sherrill Renteria RDCS Procedure CPT: Indications: pulmonary embolsim Cardiac Hx: Technical Quality: Technically difficult study Contrast 1: Lumason Total Dose (mL): 1 Contrast 2: Total Dose (mL): MEASUREMENTS (Male / Female) Normal Values 2D ECHO LV Diastolic Diameter PLAX 3.1 cm 4.2 - 5.9 / 3.9 - 5.3 cm LV Systolic Diameter PLAX 1.7 cm IVS Diastolic Thickness 1.6 cm 0.6 - 1.0 / 0.6 - 0.9 cm LVPW Diastolic Thickness 1.3 cm 0.6 - 1.0 / 0.6 - 0.9 cm LV Relative Wall Thickness 1.0 RV Internal Dim ED PLAX 3.7 cm M-MODE Aortic Root Diameter MM 3.3 cm LA Systolic Diameter MM 3.2 cm LA Ao Ratio MM 1.0 MV E Point Septal Separation 0.5 cm AV Cusp Separation MM 2.0 cm DOPPLER MV Area PHT 6.8 cm??? MR Peak Velocity 151.7 cm/s MR Peak Gradient 9.2 mmHg Mitral E Point Velocity 84.3 cm/s Mitral A Point Velocity 102.6 cm/s Mitral E to A Ratio 0.8 MV Deceleration Time 111.0 ms MV E' Velocity 8.0 cm/s Mitral E to MV E' Ratio 10.5 TR Peak Velocity 311.6 cm/s TR Peak Gradient 38.8 mmHg Right Ventricular Systolic Press 43.4 mmHg FINDINGS Left Ventricle Moderately increased septal wall thickness. Left ventricular ejection fraction is estimated at 55-60 %. Left ventricular cavity size normal. Right Ventricle Moderate right ventricular dilatation. Moderate pulmonary hypertension. TAPSE is 15mm. Right Atrium Normal right atrial size. Left Atrium The left atrium is normal in size. Mitral Valve Structurally normal mitral valve without significant stenosis or prolapse. There is trace mitral regurgitation. Aortic Valve Structurally normal aortic valve without significant sclerosis or stenosis. There is no aortic regurgitation. Tricuspid Valve Mild tricuspid regurgitation. Structurally normal tricuspid valve. Pulmonic Valve Structurally normal pulmonic valve without significant stenosis. There is no pulmonic regurgitation. Pericardium Normal pericardium without effusion. Aorta Normal aortic root dimension. CONCLUSIONS Normal LV systolic function Moderate RV enlargement and moderate pulmonary hypertension Previewed by: Dr. Emmanuel Shi MD (Electronically Signed) Final Date: 23 June 2022 16:52
[2022-06-23] MEDS ORDERED: AZITHROMYCIN 500 MG TAB PO SCH (21:00)
[2022-06-24] MEDS: HYDROcodone/APAP 5-325MG 1 EACH TAB PO PRN ×2 (00:16→06:17)
[2022-06-24 05:53] LABS: Basophils % (A) 0 %; Eosinophils # (A) 0.2 k/uL (0-0.7); Eosinophils % (A) 3 %; HCT 37.3 % (39.0-53.0); HGB 11.9 gm/dL (13.0-17.5); Lymphocytes # (A) 1.5 k/uL (1.0-4.8); Lymphocytes % (A) 23 %; MCH 30.1 pg (25.0-35.0); MCHC 31.8 g/dL (31.0-37.0); MCV 94.6 fL (80.0-100.0); Mean Platelet Volume 7.5; Monocytes # (A) 0.5 k/uL (0-1.0); Monocytes % (A) 7 %; Neutrophils # (A) 4.3 k/uL (1.3-7.7); Neutrophils % (A) 65 %; Platelet Count 154 k/uL (150-450); RBC 3.94 m/uL (4.30-5.90); RDW 13.1 % (11.5-15.5); WBC 6.6 k/uL (3.8-10.6)
[2022-06-24 06:02] LABS: INR 1.1 (<1.2); Partial Thromboplastin Time 24.9 sec (22.0-30.0); Prothrombin Time 11.5 sec (9.0-12.0)
[2022-06-24 06:07] LABS: African American GFR (CKD) >90 (>60 ml/min/1.73 sqM); Anion Gap 0 mmol/L; Blood Urea Nitrogen 8 mg/dL (9-20); Calcium 7.5 mg/dL (8.4-10.2); Carbon Dioxide 27 mmol/L (22-30); Chloride 111 mmol/L (98-107); Glucose 99 mg/dL (74-99); Non-African American GFR(CKD) >90 (>60 ml/min/1.73 sqM); Potassium 3.9 mmol/L (3.5-5.1); Sodium 138 mmol/L (137-145)
[2022-06-24] MEDS ORDERED: Potassium Replacement Protocol 1 EACH MISC MISCELLANE PRN (06:41)
[2022-06-24] MEDS ORDERED: POTASSIUM CHLORIDE ER 20 MEQ TAB.ER PO SCH (07:00)
--- NOTE | 2022-06-24 07:50 | P.PN ---
Subjective Progress Note Date: 06/24/22 Principal diagnosis: Submassive pulmonary embolism The patient is a pleasant 66-year-old gentleman was no significant past medical history who was admitted to the hospital with sudden onset of shortness of breath. He underwent a workup and that showed bilateral PE. Subsequently the patient underwent successful placement of ultrasonic catheter in the right and left pulmonary arteries. He was seen this morning. Definitely he is feeling better. Hemodynamically is doing better with better systolic blood pressure. Beside that he is requiring less oxygen. No chest pain or chest discomfort. The examination overall is unremarkable beside crackles over the right side/base. The echo showed normal LV function was dilated right ventricle and moderate pulmonary hypertension. At this point I'm going to DC the heparin and start the patient on oral anticoagulation. He can be transferred to the floor. Objective - Vital Signs Vital signs: Vital Signs Temp 98.1 F 06/24/22 04:00 Pulse 80 06/24/22 07:00 Resp 12 06/24/22 07:00 BP 109/59 06/24/22 07:00 Pulse Ox 96 06/24/22 07:00 FiO2 50 06/23/22 17:00 Intake & Output 06/23/22 06/24/22 06/24/22 18:59 06:59 18:59 Intake Total 5219.555 4472 175 Output Total 695 250 275 Balance 628.176 7605 -100 Weight 125.2 kg Intake: IV 200 Intake, IV Titration 814.582 6202 175 Amount Heparin Sod,Pork in 0.45% 99.281 NaCl 25,000 unit In 0.45 % NaCl 1 250ml.bag @ 18 UNITS/KG/HR 21.228 mls/hr IV .[id number] [facility] Rx#: [id number] Sodium Chloride 0.9% 1, 210 35 000 ml @ 35 mls/hr IV . Q24H [facility] Rx#:[id number] Sodium Chloride 0.9% 1, 210 35 000 ml @ 35 mls/hr IV . Q24H [facility] Rx#:[id number] Sodium Chloride 0.9% 1, 280 420 35 000 ml @ 35 mls/hr IV . Q24H [facility] Rx#:[id number] Sodium Chloride 0.9% 1, 280 420 35 000 ml @ Per Protocol IV .Q0M [facility] Rx#:[id number] Sodium Chloride 0.9% 1, 280 420 35 000 ml @ Per Protocol IV .Q0M [facility] Rx#:[id number] Oral 180 Output: Urine 695 250 275 Other: Voiding Method Urinal Urinal - Constitutional General appearance: Present: no acute distress - Respiratory Respiratory: right: rhonchi - Cardiovascular Rhythm: regular Heart sounds: normal: S1, S2 - Labs CBC & Chem 7: 06/24/22 05:34 06/24/22 05:34 Labs: Abnormal Lab Results - Last 24 Hours (Table) 06/23/22 06/23/22 06/23/22 Range/Units 07:17 07:17 07:17 RBC (4.30-5.90) m/uL Hgb (13.0-17.5) gm/dL Hct (39.0-53.0) % APTT 92.1 H (22.0-30.0) sec Chloride 111 H (98-107) mmol/L Carbon Dioxide 20 L (22-30) mmol/L BUN (9-20) mg/dL Glucose 118 H (74-99) mg/dL POC Glucose (mg/dL) (70-110) mg/dL Calcium 8.3 L (8.4-10.2) mg/dL Troponin I 0.171 H* (0.000-0.034) ng/mL 06/23/22 06/24/22 06/24/22 Range/Units 12:59 05:34 05:34 RBC 3.94 L (4.30-5.90) m/uL Hgb 11.9 L (13.0-17.5) gm/dL Hct 37.3 L (39.0-53.0) % APTT (22.0-30.0) sec Chloride 111 H (98-107) mmol/L Carbon Dioxide (22-30) mmol/L BUN 8 L (9-20) mg/dL Glucose (74-99) mg/dL POC Glucose (mg/dL) 130 H (70-110) mg/dL Calcium 7.5 L (8.4-10.2) mg/dL Troponin I (0.000-0.034) ng/mL Microbiology - Last 24 Hours (Table) 06/22/22 21:25 Blood Culture - Preliminary Blood No Growth after 24 hours 06/22/22 21:10 Blood Culture - Preliminary Blood No Growth after 24 hours Assessment and Plan Assessment: Assessment #1 submassive PE #2 pulmonary hypertension secondary to above #3 dilated right ventricle secondary to the above Plan #1 DC heparin IV and start the patient on oral anticoagulation #2 pulled the wires of the ultrasonic catheter #3 follow-up with the patient
[2022-06-24] MEDS: APIXABAN 5 MG TAB PO SCH ×2 (08:39→21:44)
--- NOTE | 2022-06-24 10:30 | P.PN ---
Subjective Progress Note Date: 06/24/22 Principal diagnosis: Pulmonary embolism. Pulmonary consult dated 06/23/2022. 66-year-old male who presented to the emergency department on June 22, complaining of shortness of breath. The patient apparently has been having shortness of breath for a period of time maybe, 1-2 months prior to admission. Over the last couple of days, the shortness of breath has worsened. There was no fever. He did have some occasional cough with some minimal phlegm. Also had some mild tightness in his chest, without any leg pain or swelling. The patient has no prior history of any lung issues. The patient is a lifelong nonsmoker. He apparently had some eye surgery in the past. The patient apparently has no past medical history. He also has no ALLERGIES, and takes no medications on a regular basis at home. The patient is currently on 8 L high flow nasal O2, IV heparin, and saline at 20 mL an hour. The patient is to have a catheter directed TPA and ultrasonic dissolution of his pulmonary emboli, by cardiology today. His CT angiogram did reveal bilateral pulmonary emboli, and possibly some patchy pneumonia. White count 9.4, with a normal hemoglobin, hematocrit, and platelet count. PT 12, INR 1.1, and PTT is 92.1. D-dimer was 15.31. Sodium 139, potassium 4, chlorides 111, CO2 20, with a normal BUN and creatinine. Troponins were 0.113 and 0.171. N-terminal proBNP was 499. Nasal swab for coronavirus was negative. CT angiogram showed large and multiple bilateral pulmonary emboli, without evidence of right heart strain. There is also bilateral patchy pneumonia. Progress note dated 06/24/2022. 66-year-old male seen yesterday in consultation. He came into the emergency department complaining of shortness of breath. The patient's CT angiogram was consistent with bilateral pulmonary emboli, in yesterday, the patient underwent EKOS. Currently, he is resting comfortably in room 264 in the intensive care unit. He is on 2 L nasal cannula. The patient's getting saline at 35 mL an hour. White count 6.6, hemoglobin 11.9, hematocrit 37.3, and platelet count 254,000. Sodium 138, potassium 3.9, chlorides 111, CO2 27, BUN 8, with a creatinine 0.78. Objective - Vital Signs Vital signs: Vital Signs Temp 98.8 F 06/24/22 08:00 Pulse 68 06/24/22 09:00 Resp 25 H 06/24/22 09:00 BP 111/70 06/24/22 09:00 Pulse Ox 96 06/24/22 09:00 FiO2 50 06/23/22 17:00 Intake & Output 06/23/22 06/24/22 06/24/22 18:59 06:59 18:59 Intake Total 0735.750 6852 245 Output Total 695 250 275 Balance 239.531 1670 -30 Weight 125.2 kg Intake: IV 200 Intake, IV Titration 718.265 9268 245 Amount Heparin Sod,Pork in 0.45% 99.281 NaCl 25,000 unit In 0.45 % NaCl 1 250ml.bag @ 18 UNITS/KG/HR 21.228 mls/hr IV .[id number] [facility] Rx#: [id number] Sodium Chloride 0.9% 1, 210 35 000 ml @ 35 mls/hr IV . Q24H [facility] Rx#:[id number] Sodium Chloride 0.9% 1, 210 35 000 ml @ 35 mls/hr IV . Q24H [facility] Rx#:[id number] Sodium Chloride 0.9% 1, 280 420 35 000 ml @ 35 mls/hr IV . Q24H [facility] Rx#:[id number] Sodium Chloride 0.9% 1, 280 420 35 000 ml @ Per Protocol IV .Q0M [facility] Rx#:[id number] Sodium Chloride 0.9% 1, 280 420 105 000 ml @ Per Protocol IV .Q0M [facility] Rx#:[id number] Oral 180 Output: Urine 695 250 275 Other: Voiding Method Urinal Urinal Urinal - Exam No acute distress, oriented 3. Currently on 2 L nasal cannula. HEENT examination is grossly unremarkable. Neck supple. Full range of motion. No adenopathy thyromegaly or neck vein distention. Cardiovascular examination reveals regular rhythm rate. S1-S2 normal. No S3 or S4. No discernible murmur noted. Heart rate 71 bpm. Lungs reveal mostly normal examination. Minimal scattered rhonchi. No wheezes or crackles. Saturations are 97%. Abdomen soft bowel sounds are heard. No masses or tenderness. Extremities are intact. No cyanosis clubbing or edema. Skin is without rash or lesion. Neurologic examination is brief but nonfocal. - Labs CBC & Chem 7: 06/24/22 05:34 06/24/22 05:34 Labs: Abnormal Lab Results - Last 24 Hours (Table) 06/23/22 06/23/22 06/23/22 Range/Units 07:17 07:17 12:59 RBC (4.30-5.90) m/uL Hgb (13.0-17.5) gm/dL Hct (39.0-53.0) % Chloride 111 H (98-107) mmol/L Carbon Dioxide 20 L (22-30) mmol/L BUN (9-20) mg/dL Glucose 118 H (74-99) mg/dL POC Glucose (mg/dL) 130 H (70-110) mg/dL Calcium 8.3 L (8.4-10.2) mg/dL Troponin I 0.171 H* (0.000-0.034) ng/mL 06/24/22 06/24/22 Range/Units 05:34 05:34 RBC 3.94 L (4.30-5.90) m/uL Hgb 11.9 L (13.0-17.5) gm/dL Hct 37.3 L (39.0-53.0) % Chloride 111 H (98-107) mmol/L Carbon Dioxide (22-30) mmol/L BUN 8 L (9-20) mg/dL Glucose (74-99) mg/dL POC Glucose (mg/dL) (70-110) mg/dL Calcium 7.5 L (8.4-10.2) mg/dL Troponin I (0.000-0.034) ng/mL Microbiology - Last 24 Hours (Table) 06/22/22 21:25 Blood Culture - Preliminary Blood No Growth after 24 hours 06/22/22 21:10 Blood Culture - Preliminary Blood No Growth after 24 hours Assessment and Plan Assessment: Acute hypoxemic respiratory failure secondary to pulmonary embolism, possibly complicated by pneumonia. S/P catheter directed TPA and ultrasonic dissolution of the pulmonary embolism (EKOS), 06/23/2022. No evidence of right heart strain on the patient's CTA. No prior history of lung disease. No past medical history. Plan: Plan dated 06/23/2022. The patient is on azithromycin and Rocephin. The patient will be transferred to the intensive care unit. Additional recommendations and suggestions are forthcoming. The ER physician has written for [facility]. We will continue to follow and make recommendations were appropriate. Labs, x-rays, and medications are all reviewed. Prognosis is guarded. Plan dated 06/24/2022. The patient's doing very well. He's been weaned down to 2 L. He remains on saline at 35 mL an hour. The patient has been started on a factor X a inhibitor. In my opinion, this is an unprovoked pulmonary embolism, and the patient should continue treatment for 6 months. He remains on azithromycin and ceftriaxone as per the ER physician. Additional recommendations and suggestions are forthcoming. Prognosis is guarded. He will need a follow-up computed tomography scan in 8-10 weeks. I told him I would like to see him in the office, in a couple of weeks. Time with Patient: Less than 30
[2022-06-24] MEDS: SODIUM CHLORIDE 0.9% 1,000 ML IV SCH ×3 (11:57→11:59)
--- NOTE | 2022-06-24 14:19 | CDI ---
Documentation Clarification Form Date: 06/24/2022 02:04:31 PM From: Shannan Castellon CCS, CCDS Admit Date: 06/22/2022 08:57:00 PM Patient Name: Kishor Ozuna Visit Number: [id number] Discharge Date: ATTENTION: The Clinical Documentation Specialists (CDI) and [facility] Coding Staff appreciate your assistance in clarifying documentation. Please respond to the clarification below the line at the bottom and electronically sign. The CDI & [facility] Coding staff will review the response and follow-up if needed. Please note: Queries are made part of the Legal Health Record. If you have any questions, please contact the author of this message via ITS. Dr. Neena Prabhakar: Per the 06/23 Cardiology Consult: CTA: Large bilateral pulmonary emboli, report states no evidence of right heart strain. Assessment: Acute hypoxic respiratory failure, likely secondary to above right heart strain. Plan: 2D echocardiogram reviewed at bedside by Dr. Amezcua and right heart strain is noted. Per the 06/23 Attending Physician Progress Note: Bilateral pulmonary artery embolism with right heart strain on Echocardiogram. Additional clarification regarding the ECHO results and above documentation is requested. History/Risk Factors per the 06/22 H/P: No reported history. Clinical Indicators: Presented to the ED on 06/22 via EMS with difficulty breathing. Has had mild symptoms over the past 1-2 months with worsening symptoms over the past couple days. Occasional cough with sputum, occasional mild tightness in his chest. Admit with Bilateral Pulmonary Emboli. 06/22 VS: T 97.9, P 114, R 24 (sob, labored), BP 147/90, PO 89 6Lnc - 96 10% nrb - 8L high flow, BMI: 36.4 06/22 LAB: WBC 12.5, Neutrophils 10.0; APTT 18.8, D Dimer 15.31; Chloride 108, CO2 20, Glucose 133, AST 73, ALT 56, Troponin 0.113, 0.171. 06/22 COVID negative, Influenza A/B: negative. 06/23 ECHO: Normal LV systolic function. Moderate RV enlargement and moderate pulmonary hypertension. Treatment 06/22: Pulmonary consult, Blood cultures, O2 6-8Lnc, IV Heparin drip, IV Rocephin 50 mls/hr @ 100 mls/hr x1, INH Duoneb 3ml q4H/prn, IV Azithromycin 250 mls @ 250 mls/hr x1. 8/ TPA/EKOS procedure, IV Heparin, po Zithromax 500 mg Daily. Please clarify the following: [ X] Acute Cor pulmonale due to pulmonary embolism [ ] Chronic Cor pulmonale due to Pulmonary Hypertension [ ] Unable to determine [ ] Other, please specify Template Last Revised: January 2021) MTDD
--- NOTE | 2022-06-24 16:57 | P.PN ---
Subjective Progress Note Date: 06/24/22 Principal diagnosis: shortness of breath The patient is a 66-year-old male with no known PMH who presented to the emergency room with complaints of shortness of breath. In the emergency department he undwerwent an extensive evaluation. Chest CTA in the emergency room revealed multiple large bilateral pulmonary emboli with no evidence of right heart strain and no evidence of significant cardiomegaly. There was bilateral patchy pneumonia noted. EKG reveals sinus tachycardia. The patient denied personal or family history of blood clots. Denied recent travel or p rolonged immobilization. Laboratory evaluation was remarkable for troponin of 0.113, W count 12.5, with the coronavirus PCR negative. He was started on a heparin infusion and antibiotics were continued. Pneumonia. Arrangements were felt to admission. He did require high flow nasal cannula and had persistent tachycardia as well as one episode of hypotension overnight. Morning cardiology was consulted for concerns of possible PE with heart strain. Repeat troponin did increase. Urgent echocardiogram was obtained and reviewed by Dr. Amezcua at bedside and proceeded to take the patient for EKOS. He was seen by pulmonary who recommended continuing Rocephin and Zithromax. Patient seen and examined at bedside. He reports that he has had a cough for the last 2 months without feeling ill. He reports that yesterday he started having sudden onset shortness of breath and chest pressure. He denies any personal or family history of blood clots. He has had a TIA in the past. He does report that he did live outside the country in [place] in the 1970s and was in the . General: Ill-appearing, moderate distress appears at stated age Derm: warm, dry Head: atraumatic, normocephalic, symmetric Eyes: EOMI, no lid lag, anicteric sclera Mouth: no lip lesion, mucus membranes moist Cardiovascular: S1S2 tachycardic, no murmur, positive posterior tibial pulse bilateral, Lungs: +2 with conversational dyspnea, + accessory muscle use, coarse breath sounds bilaterally, no wheezing Abdominal: soft, nontender to palpation, no guarding, no appreciable organomegaly Ext: no gross muscle atrophy, no edema, no contractures Neuro: CN II-XI grossly intact, no focal neuro deficits Psych: Alert, oriented, appropriate affect Assessment/plan: Submassive pulmonary artery embolism with pulm HTN and dilated right ventricle on echocardiogram Acute hypoxic respiratory failure Community-acquired pneumonia Elevated troponin due to Pulmonary embolism Acute hypoxic respiratory failure - s/p EKOS - stated on eliquis - Cardio and pulm recs appreciated - rocephin and zithromax - will need outpatient oncology evaluation - needs age appropriate cancer screening and possible hypercoag evaluation - had recent colonoscopy per patient, discussed need for prostate eval. - wean O2 as able - tele - follow CXR - wean O2 as able Anticipate home in AM if able to come off O2 Objective - Vital Signs Vital signs: Vital Signs Temp 98.8 F 06/24/22 08:00 Pulse 69 06/24/22 12:00 Resp 32 H 06/24/22 12:00 BP 122/84 06/24/22 12:00 Pulse Ox 95 06/24/22 12:00 FiO2 50 06/23/22 17:00 Intake & Output 06/23/22 06/24/22 06/24/22 18:59 06:59 18:59 Intake Total 4131.177 4150 710 Output Total 695 250 275 Balance 688.788 8263 435 Weight 125.2 kg Intake: IV 200 Intake, IV Titration 948.769 6317 350 Amount Heparin Sod,Pork in 0.45% 99.281 NaCl 25,000 unit In 0.45 % NaCl 1 250ml.bag @ 18 UNITS/KG/HR 21.228 mls/hr IV .[id number] R[facility] Rx#: [id number] Sodium Chloride 0.9% 1, 210 35 000 ml @ 35 mls/hr IV . Q24H [facility] Rx#:[id number] Sodium Chloride 0.9% 1, 210 35 000 ml @ 35 mls/hr IV . Q24H [facility] Rx#:[id number] Sodium Chloride 0.9% 1, 280 420 35 000 ml @ 35 mls/hr IV . Q24H [facility] Rx#:[id number] Sodium Chloride 0.9% 1, 280 420 35 000 ml @ Per Protocol IV .Q0M R[facility] Rx#:[id number] Sodium Chloride 0.9% 1, 280 420 210 000 ml @ Per Protocol IV .Q0M R[facility] Rx#:[id number] Oral 180 360 Output: Urine 695 250 275 Other: Voiding Method Urinal Urinal Urinal # Voids 1 - Labs CBC & Chem 7: 06/24/22 05:34 06/24/22 05:34 Labs: Abnormal Lab Results - Last 24 Hours (Table) 06/24/22 06/24/22 Range/Units 05:34 05:34 RBC 3.94 L (4.30-5.90) m/uL Hgb 11.9 L (13.0-17.5) gm/dL Hct 37.3 L (39.0-53.0) % Chloride 111 H (98-107) mmol/L BUN 8 L (9-20) mg/dL Calcium 7.5 L (8.4-10.2) mg/dL Microbiology - Last 24 Hours (Table) 06/24/22 08:05 Sputum Culture - Preliminary Sputum 06/22/22 21:25 Blood Culture - Preliminary Blood No Growth after 24 hours 06/22/22 21:10 Blood Culture - Preliminary Blood No Growth after 24 hours
[2022-06-24] MEDS ORDERED: AZITHROMYCIN 500 MG TAB PO SCH (21:00)
[2022-06-25 04:46] VITALS: RESP 18
[2022-06-25] MEDS: APIXABAN 5 MG TAB PO SCH (08:59)
--- NOTE | 2022-06-25 09:10 | P.PN ---
Subjective Progress Note Date: 06/25/22 Patient has improved, now requiring minimal amount of oxygen. Still has cough. Otherwise, doing okay. Gen: awake, alert HEENT: normocephalic, atraumatic, good hearing acuity, moist mucous membranes Resp: good air exchange, breathing comfortably with no accessory muscle use CVS: good distal perfusion x 4, GI: soft, NTTP, ND : no SPT, no CVAT, delatorre catheter not present MSK: no pitting edema, no clubbing Neuro: non-focal, moving all extremities Psych: cooperative, euthymic mood Assessment/plan: Submassive pulmonary artery embolism with pulm HTN and dilated right ventricle on echocardiogram Acute hypoxic respiratory failure Community-acquired pneumonia Elevated troponin due to Pulmonary embolism Acute hypoxic respiratory failure - s/p EKOS - stated on eliquis - Cardio and pulm recs appreciated - rocephin and zithromax - will need outpatient oncology evaluation - needs age appropriate cancer screening and possible hypercoag evaluation - had recent colonoscopy per patient, discussed need for prostate eval. - wean O2 as able - tele - follow CXR - wean O2 as able Anticipate home in AM if able to come off O2 Objective - Vital Signs Vital signs: Vital Signs Temp 98.3 F 06/25/22 04:00 Pulse 65 06/25/22 04:00 Resp 18 06/25/22 04:00 BP 103/61 06/25/22 04:00 Pulse Ox 99 06/25/22 04:00 FiO2 50 06/23/22 17:00 Intake & Output 06/24/22 06/25/22 06/25/22 18:59 06:59 18:59 Intake Total 710 Output Total 275 Balance 435 Intake: Intake, IV Titration 350 Amount Sodium Chloride 0.9% 1, 35 000 ml @ 35 mls/hr IV . Q24H [facility] Rx#:[id number] Sodium Chloride 0.9% 1, 35 000 ml @ 35 mls/hr IV . Q24H R[facility] Rx#:[id number] Sodium Chloride 0.9% 1, 35 000 ml @ 35 mls/hr IV . Q24H [facility] Rx#:[id number] Sodium Chloride 0.9% 1, 35 000 ml @ Per Protocol IV .Q0M R[facility] Rx#:[id number] Sodium Chloride 0.9% 1, 210 000 ml @ Per Protocol IV .Q0M R[facility] Rx#:[id number] Oral 360 Output: Urine 275 Other: Voiding Method Urinal # Voids 1 - Labs CBC & Chem 7: 06/24/22 05:34 06/24/22 05:34 Labs: Microbiology - Last 24 Hours (Table) 06/22/22 21:10 Blood Culture - Preliminary Blood No Growth after 48 hours 06/22/22 21:25 Blood Culture - Preliminary Blood No Growth after 48 hours 06/24/22 08:05 Sputum Culture - Preliminary Sputum
--- NOTE | 2022-06-25 09:25 | CA ---
Transthoracic Echo Report Name: Kishor Ozuna Age: 66 Gender: M : 1955 Exam Date: 06/24/2022 07:27 Exam Location: [facility] Ht (in): 71 Wt (lb): 260 Ordering Physician: Eduardo Amezcua MD ([id number]) Attending/Referring Phys: Lime Filter Operator Sherrill Renteria RDCS Procedure CPT: Indications: Limited Echo for RV pressure Cardiac Hx: Technical Quality: Good Contrast 1: Total Dose (mL): Contrast 2: Total Dose (mL): MEASUREMENTS (Male / Female) Normal Values 2D ECHO RV Internal Dim ED PLAX 3.7 cm DOPPLER TR Peak Velocity 351.0 cm/s TR Peak Gradient 49.3 mmHg Right Ventricular Systolic Press 53.0 mmHg FINDINGS Left Ventricle Left ventricular ejection fraction is estimated at 55-60_ %. Right Ventricle Moderate right ventricular dilatation. There is right ventricular enlargement consistent with right ventricular volume overload. Moderate to severe pulmonary hypertension. Tapse is 15.6 mm. Right Atrium Left Atrium Mitral Valve Aortic Valve Tricuspid Valve Moderate tricuspid regurgitation. Pulmonic Valve Pericardium No pericardial effusion. Aorta CONCLUSIONS Preserved LV systolic function Right ventricular enlargement with hypertrophy and evidence of pressure overload Moderate tricuspid regurgitation Previewed by: Dr. Emmanuel Shi MD (Electronically Signed) Final Date: 25 June 2022 09:25
[2022-06-25 10:17] VITALS: TEMP 97.8
--- NOTE | 2022-06-25 11:20 | P.PN ---
Subjective Progress Note Date: 06/25/22 Principal diagnosis: Pulmonary embolism. Pulmonary consult dated 06/23/2022. 66-year-old male who presented to the emergency department on June 22, complaining of shortness of breath. The patient apparently has been having shortness of breath for a period of time maybe, 1-2 months prior to admission. Over the last couple of days, the shortness of breath has worsened. There was no fever. He did have some occasional cough with some minimal phlegm. Also had some mild tightness in his chest, without any leg pain or swelling. The patient has no prior history of any lung issues. The patient is a lifelong nonsmoker. He apparently had some eye surgery in the past. The patient apparently has no past medical history. He also has no ALLERGIES, and takes no medications on a regular basis at home. The patient is currently on 8 L high flow nasal O2, IV heparin, and saline at 20 mL an hour. The patient is to have a catheter directed TPA and ultrasonic dissolution of his pulmonary emboli, by cardiology today. His CT angiogram did reveal bilateral pulmonary emboli, and possibly some patchy pneumonia. White count 9.4, with a normal hemoglobin, hematocrit, and platelet count. PT 12, INR 1.1, and PTT is 92.1. D-dimer was 15.31. Sodium 139, potassium 4, chlorides 111, CO2 20, with a normal BUN and creatinine. Troponins were 0.113 and 0.171. N-terminal proBNP was 499. Nasal swab for coronavirus was negative. CT angiogram showed large and multiple bilateral pulmonary emboli, without evidence of right heart strain. There is also bilateral patchy pneumonia. Progress note dated 06/24/2022. 66-year-old male seen yesterday in consultation. He came into the emergency department complaining of shortness of breath. The patient's CT angiogram was consistent with bilateral pulmonary emboli, in yesterday, the patient underwent EKOS. Currently, he is resting comfortably in room 264 in the intensive care unit. He is on 2 L nasal cannula. The patient's getting saline at 35 mL an hour. White count 6.6, hemoglobin 11.9, hematocrit 37.3, and platelet count 254,000. Sodium 138, potassium 3.9, chlorides 111, CO2 27, BUN 8, with a creatinine 0.78. Progress note dated 06/25/2022. 66-year-old male seen in consultation 2 days ago for shortness of breath and pulmonary embolism. The patient is doing much better. He is on room air. He is hoping to be discharged today. Prior to discharge, they will determine whether or not he needs oxygen on discharge. The patient underwent EKOS on June 23. No new labs today. No new x-rays today. The patient will follow with me in the office. Objective - Vital Signs Vital signs: Vital Signs Temp 97.8 F 06/25/22 08:00 Pulse 82 06/25/22 08:00 Resp 18 06/25/22 08:00 BP 116/68 06/25/22 08:00 Pulse Ox 95 06/25/22 08:00 FiO2 50 06/23/22 17:00 Intake & Output 06/24/22 06/25/22 06/25/22 18:59 06:59 18:59 Intake Total 710 Output Total 275 Balance 435 Intake: Intake, IV Titration 350 Amount Sodium Chloride 0.9% 1, 35 000 ml @ 35 mls/hr IV . Q24H [facility] Rx#:[id number] Sodium Chloride 0.9% 1, 35 000 ml @ 35 mls/hr IV . Q24H [facility] Rx#:[id number] Sodium Chloride 0.9% 1, 35 000 ml @ 35 mls/hr IV . Q24H [facility] Rx#:[id number] Sodium Chloride 0.9% 1, 35 000 ml @ Per Protocol IV .Q0M [facility] Rx#:[id number] Sodium Chloride 0.9% 1, 210 000 ml @ Per Protocol IV .Q0M [facility] Rx#:[id number] Oral 360 Output: Urine 275 Other: Voiding Method Urinal # Voids 1 - Exam No acute distress, oriented 3. Currently on room air. HEENT examination is grossly unremarkable. Neck supple. Full range of motion. No adenopathy thyromegaly or neck vein distention. Cardiovascular examination reveals regular rhythm rate. S1-S2 normal. No S3 or S4. No discernible murmur noted. Heart rate 74 bpm. Lungs reveal mostly normal examination. Minimal scattered rhonchi. No wheezes or crackles. Saturations are 95%. Abdomen soft bowel sounds are heard. No masses or tenderness. Extremities are intact. No cyanosis clubbing or edema. Skin is without rash or lesion. Neurologic examination is brief but nonfocal. - Labs CBC & Chem 7: 06/24/22 05:34 06/24/22 05:34 Labs: Microbiology - Last 24 Hours (Table) 06/22/22 21:10 Blood Culture - Preliminary Blood No Growth after 48 hours 06/22/22 21:25 Blood Culture - Preliminary Blood No Growth after 48 hours 06/24/22 08:05 Sputum Culture - Preliminary Sputum Assessment and Plan Assessment: Acute hypoxemic respiratory failure secondary to pulmonary embolism, possibly complicated by pneumonia. S/P catheter directed TPA and ultrasonic dissolution of the pulmonary embolism (EKOS), 06/23/2022. No evidence of right heart strain on the patient's CTA. No prior history of lung disease. No past medical history. Plan: Plan dated 06/23/2022. The patient is on azithromycin and Rocephin. The patient will be transferred to the intensive care unit. Additional recommendations and suggestions are forthcoming. The ER physician has written for [facility]. We will continue to follow and make recommendations were appropriate. Labs, x-rays, and medications are all reviewed. Prognosis is guarded. Plan dated 06/24/2022. The patient's doing very well. He's been weaned down to 2 L. He remains on saline at 35 mL an hour. The patient has been started on a factor X a inhib itor. In my opinion, this is an unprovoked pulmonary embolism, and the patient should continue treatment for 6 months. He remains on azithromycin and ceftriaxone as per the ER physician. Additional recommendations and suggestions are forthcoming. Prognosis is guarded. He will need a follow-up computed tomography scan in 8-10 weeks. I told him I would like to see him in the office, in a couple of weeks. Plan dated 06/25/2022. The patient will likely be discharged today. It's a matter of whether or not he'll need oxygen on discharge. They will determine that before he leaves. Clinically he looks well. He's feeling well. The patient will see me back in the office after discharge. He will need a follow-up computed tomography scan down the road. All this is explained to him. The nurses will set up his follow-up appointment. Time with Patient: Less than 30
--- NOTE | 2022-06-25 12:23 | P.PN ---
Subjective This is a pleasant 66-year-old male past medical history significant for basal cell carcinoma skin. 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 We have been asked to see in consultation for bilateral pulmonary embolism. Patient presents to the emergency department for worsening shortness of breath.. On admission patient's d-dimer is elevated 15.3. CT revealed multiple large bilateral pulmonary emboli. Echocardiogram revealed EF of 5560 percent, moderate RV enlargement, moderate pulmonary hypertension, RVSP of 43 mmHg, TAPSE 15mm. He underwent EKOS with Dr. Amezcua on 06/23/2022. He has been transferred out of the ICU. Patient seen and examined on 3S, he is feeling well. No acute distress. Denies any chest pain, breathing is stable. Hemodynamically stable. He is sitting in the bedside chair on room air. Did require O2 overnight. Limited echo revealed an EF 5560 percent, RVSP of 53 mmHg, RV enlargement with right ventricular volume overload, but severe pulmonary hypertension, moderate tricuspid regurgitation. PHYSICAL EXAMINATION Vitals reviewed CONSTITUTIONAL: No apparent distress. HEENT: Head is normocephalic. Neck supple. No JVD. CHEST EXAMINATION: Lungs are diminished bilaterally to auscultation. No chest wall tenderness is noted on palpation or with deep breathing. HEART EXAMINATION: Regular rate and rhythm. S1, S2 heard. No murmurs, gallops or rub. ABDOMEN: Soft, nontender. Positive bowel sounds. EXTREMITIES: 2+ peripheral pulses, no lower extremity edema and no calf tenderness. NEUROLOGIC EXAMINATION: Patient is awake, alert and oriented x3. ASSESSMENT Submassive Bilateral Pulmonary Emboli, unprovoked Status post EKOS on 06/23/2022 Elevated troponin, likely secondary to above Acute hypoxic respiratory failure, secondary to above Right heart strain History of basal cell carcinoma skin PLAN Continue Eliquis Increase activity as tolerated Hopefully discharge in next 24 hours Further recommendations based on clinical course Nurse practitioner note has been reviewed by physician. Signing provider agrees with the documented findings, assessment, and plan of care. Objective - Vital Signs Vital signs: Vital Signs Temp 97.8 F 06/25/22 08:00 Pulse 82 06/25/22 08:00 Resp 18 06/25/22 08:00 BP 116/68 06/25/22 08:00 Pulse Ox 95 06/25/22 08:00 FiO2 50 06/23/22 17:00 Intake & Output 06/24/22 06/25/22 06/25/22 18:59 06:59 18:59 Intake Total 710 Output Total 275 Balance 435 Intake: Intake, IV Titration 350 Amount Sodium Chloride 0.9% 1, 35 000 ml @ 35 mls/hr IV . Q24H RACH Rx#:[id number] Sodium Chloride 0.9% 1, 35 000 ml @ 35 mls/hr IV . Q24H RACH Rx#:[id number] Sodium Chloride 0.9% 1, 35 000 ml @ 35 mls/hr IV . Q24H RACH Rx#:[id number] Sodium Chloride 0.9% 1, 35 000 ml @ Per Protocol IV .Q0M RACH Rx#:[id number] Sodium Chloride 0.9% 1, 210 000 ml @ Per Protocol IV .Q0M RACH Rx#:[id number] Oral 360 Output: Urine 275 Other: Voiding Method Urinal # Voids 1 - Labs CBC & Chem 7: 06/24/22 05:34 06/24/22 05:34 Labs: Microbiology - Last 24 Hours (Table) 06/22/22 21:10 Blood Culture - Preliminary Blood No Growth after 48 hours 06/22/22 21:25 Blood Culture - Preliminary Blood No Growth after 48 hours 06/24/22 08:05 Sputum Culture - Preliminary Sputum
[2022-06-25 16:03] VITALS: BP 132/70; PULSE 66
--- NOTE | 2022-06-25 16:29 | P.DS ---
Providers Date of admission: 06/22/22 20:57 Expected date of discharge: 06/25/22 Attending physician: Melody Robert MD Consults: 06/22/22 20:58 Consult Physician Urgent Consulting Provider: Sun Wilkinson Consult Reason/Comments: pe, pneumonia Do you want consulting provider notified?: Yes 06/23/22 07:27 Consult Physician Routine Consulting Provider: Eduardo Amezcua Consult Reason/Comments: pulmonary embolism with elevated troponin Do you want consulting provider notified?: Yes Primary care physician: Jakob Canseco MD Hospital Course: Submassive pulmonary artery embolism with pulm HTN and dilated right ventricle on echocardiogram Acute hypoxic respiratory failure Community-acquired pneumonia Elevated troponin due to Pulmonary embolism Acute hypoxic respiratory failure The patient is a 66-year-old male with no known PMH who presented to the emergency room with complaints of shortness of breath. In the emergency department he undwerwent an extensive evaluation. Chest CTA in the emergency room revealed multiple large bilateral pulmonary emboli with no evidence of right heart strain and no evidence of significant cardiomegaly. There was bilateral patchy pneumonia noted. EKG reveals sinus tachycardia. Laboratory evaluation was remarkable for troponin of 0.113, W count 12.5, with the coronavirus PCR negative. He was started on a heparin infusion and antibiotics were continued. Arrangements were felt to admission. He did require high flow nasal cannula and had persistent tachycardia as well as one episode of hypotension overnight. Morning cardiology was consulted for concerns of possible PE with heart strain. Repeat troponin did increase. Urgent echocardiogram was obtained and reviewed by Dr. Amezcua at bedside and proceeded to take the patient for EKOS. He was seen by pulmonary who recommended continuing Rocephin and Zithromax. Pt was able to be weaned off of oxygen and is on room air at the time of discharge. He was dsicharged with 2 additional days of cefdinir for a total 5 day course. I spent 32 minutes coordinating this discharge. Gen: awake, alert HEENT: normocephalic, atraumatic, good hearing acuity, moist mucous membranes Resp: good air exchange, breathing comfortably with no accessory muscle use CVS: good distal perfusion x 4, GI: soft, NTTP, ND : no SPT, no CVAT, delatorre catheter not present MSK: no pitting edema, no clubbing Neuro: non-focal, moving all extremities Psych: cooperative, euthymic mood Patient Condition at Discharge: Good Plan - Discharge Summary New Discharge Prescriptions: New Apixaban [Eliquis Starter Pack (for VTE)] 5 - 10 mg PO DIRECTED 30 Days #1 each Albuterol Sulfate [Albuterol Sulfate Hfa] 1 puff PO Q4-6H PRN #8.5 gm PRN Reason: Shortness Of Breath Cefdinir [Omnicef] 300 mg PO Q12HR #4 capsule Discharge Medication List Apixaban [Eliquis Starter Pack (for VTE)] 5 - 10 mg PO DIRECTED 30 Days #1 each 06/24/22 [Rx] Albuterol Sulfate [Albuterol Sulfate Hfa] 1 puff PO Q4-6H PRN #8.5 gm 06/25/22 [Rx] Cefdinir [Omnicef] 300 mg PO Q12HR #4 capsule 06/25/22 [Rx] Follow up Appointment(s)/Referral(s): Eduardo Amezcua MD [STAFF PHYSICIAN] - 1 Week Alejandro Steiner MD [STAFF PHYSICIAN] - 4 Weeks (new pulmonary embolism, need hype rcoag evaluation) Joo Navarro DO [Doctor of Osteopathic Medicine] - 1 Week Jakob Canseco MD [Primary Care Provider] - 1-2 days Discharge Disposition: HOME SELF-CARE
== END 2022-06-25 18:00 | disposition home or self-care (01) | DRG 166 ==
LOC: EC 17:01 → 3SCARD 20:57 → 2SICU 06-23 10:34 → 3SCARD 06-23 10:39 → 2SICU 06-23 11:22 → 3SCARD 06-24 12:49
PROVIDERS: ADMIT Internal Medicine; ATTEND Internal Medicine
PROC: 3E03317 Introduction of Other Thrombolytic into Peripheral Vein, Percutaneous Approach (ICD-10-PCS; 2022-06-23)
PROC: 02FR3Z0 Fragmentation of Left Pulmonary Artery, Percutaneous Approach, Ultrasonic (ICD-10-PCS; principal; 2022-06-23 17:40)
DX: I26.09 Other pulmonary embolism with acute cor pulmonale (principal); J18.9 Pneumonia, unspecified organism; J96.01 Acute respiratory failure with hypoxia; E87.70 Fluid overload, unspecified; I07.1 Rheumatic tricuspid insufficiency; I27.20 Pulmonary hypertension, unspecified; I49.3 Ventricular premature depolarization; Z85.828 Personal history of other malignant neoplasm of skin; Z86.73 Personal history of transient ischemic attack (TIA), and cerebral infarction without residual deficits; I95.9 Hypotension, unspecified; R77.8 Other specified abnormalities of plasma proteins; Z20.822 Contact with and (suspected) exposure to COVID-19; Z28.310 Unvaccinated for COVID-19
CPT/HCPCS: 36415; 37211; 71046; 71275; 80048; 80053; 83605; 83880; 84484; 85025; 85379; 85384; 85610; 85730; 87040; 87070; 87205; 87502; 87635; 93005; 93306; 93308; 94640; 96365; 99291

== ENCOUNTER 2022-06-27 15:41 | Emergency (ER) | payer MEDICARE ==
[2022-06-27 15:56] VITALS: TEMP 97.6
--- NOTE | 2022-06-27 17:52 | ED ---
General Adult HPI - General Chief complaint: Extremity Problem,Nontraumatic Stated complaint: Swelling in Feet, Recent PE Time Seen by Provider: 06/27/22 16:59 Source: patient Mode of arrival: ambulatory Limitations: no limitations - History of Present Illness Initial comments: Dictation was produced using [employer] dictation software. please excuse any grammatical, word or spelling errors. Chief Complaint: 66-year-old male presents emergency department for lower extremity swelling History of Present Illness: Is 66-year-old male he was just discharged from our facility 2 days ago. Patient was admitted to the hospital for submassive PE. Patient underwent extensive evaluation and treatment. Patient underwent EKOS therapy with cardiology. Patient states that he noted that his lower extremities were swollen. He went to the urgent care and was told to come to the emergency room. Patient has chest pain or shortness of breath. He does have any pain complaints. The ROS documented in this emergency department record has been reviewed and confirmed by me. Those systems with pertinent positive or negative responses have been documented in the HPI. All other systems are other negative and/or noncontributory. PHYSICAL EXAM: General Impression: Alert and oriented x3, not in acute distress HEENT: Normocephalic atraumatic, extra-ocular movements intact, pupils equal and reactive to light bilaterally, mucous membranes moist. Cardiovascular: Heart regular rate and rhythm Chest: Able to complete full sentences, no retractions, no tachypnea Abdomen: abdomen soft, non-tender, non-distended, no organomegaly Musculoskeletal: Pulses present and equal in all extremities, 1+ pitting edema Motor: no focal deficits noted Neurological: CN II-XII grossly intact, no focal motor or sensory deficits noted Skin: Intact with no visualized rashes Psych: Normal affect and mood ED course: 66-year-old male presents emergency department for lower extremity edema bilaterally. 1+. Patient otherwise has no other complaints. He feels well as a chest pain or shortness of breath. Vital signs are within acceptable limits. Vital Signs upon arrival are within acceptable limits. Laboratory evaluation obtained. CBC unremarkable. Metabolic panel is negative. Patient observed in emergency department for 3 hours. Patient evaluated at 6:45 PM 5 in stable medical condition. Patient is well-appearing and having thoracic complaints. Patient be discharged. - Related Data Home Medications Medication Instructions Recorded Confirmed Apixaban [Eliquis Starter Pack See Taper PO DIRECTED 06/27/22 06/27/22 (for VTE)] Previous Rx's Medication Instructions Recorded Albuterol Sulfate [Albuterol 1 puff PO Q4-6H PRN #8.5 gm 06/25/22 Sulfate Hfa] Cefdinir [Omnicef] 300 mg PO Q12HR #4 capsule 06/25/22 Allergies Allergy/AdvReac Type Severity Reaction Status Date / Time No Known Allergies Allergy Verified 06/27/22 17:43 Review of Systems ROS Statement: Those systems with pertinent positive or pertinent negative responses have been documented in the HPI. ROS Other: All systems not noted in ROS Statement are negative. Past Medical History Past Medical History: No Reported History Additional Past Medical History / Comment(s): PE History of Any Multi-Drug Resistant Organisms: None Reported Past Surgical History: No Surgical Hx Reported Additional Past Surgical History / Comment(s): 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, laser eye surgery, Past Psychological History: No Psychological Hx Reported Smoking Status: Never smoker Past Alcohol Use History: Occasional Past Drug Use History: None Reported - Past Family History Mother Family Medical History: Hyperlipidemia General Exam Limitations: no limitations Course Vital Signs 06/27/22 06/27/22 06/27/22 15:54 17:19 18:35 Temperature 97.6 F Pulse Rate 70 63 63 Respiratory 20 18 19 Rate Blood Pressure 152/66 149/83 147/77 O2 Sat by Pulse 97 Oximetry Medical Decision Making - Lab Data Result diagrams: 06/27/22 17:53 06/27/22 17:53 Lab Results 06/27/22 06/27/22 Range/Units 17:53 17:53 WBC 6.8 (3.8-10.6) k/uL RBC 4.46 (4.30-5.90) m/uL Hgb 13.4 (13.0-17.5) gm/dL Hct 41.5 (39.0-53.0) % MCV 93.0 (80.0-100.0) fL MCH 30.1 (25.0-35.0) pg MCHC 32.3 (31.0-37.0) g/dL RDW 13.4 (11.5-15.5) % Plt Count 284 (150-450) k/uL MPV 6.8 Neutrophils % 65 % Lymphocytes % 24 % Monocytes % 6 % Eosinophils % 2 % Basophils % 1 % Neutrophils # 4.4 (1.3-7.7) k/uL Lymphocytes # 1.7 (1.0-4.8) k/uL Monocytes # 0.4 (0-1.0) k/uL Eosinophils # 0.1 (0-0.7) k/uL Basophils # 0.0 (0-0.2) k/uL Sodium 137 (137-145) mmol/L Potassium 4.0 (3.5-5.1) mmol/L Chloride 105 (98-107) mmol/L Carbon Dioxide 24 (22-30) mmol/L Anion Gap 8 mmol/L BUN 11 (9-20) mg/dL Creatinine 0.77 (0.66-1.25) mg/dL Est GFR (CKD-EPI)AfAm >90 (>60 ml/min/1.73 sqM) Est GFR (CKD-EPI)NonAf >90 (>60 ml/min/1.73 sqM) Glucose 87 (74-99) mg/dL Calcium 9.0 (8.4-10.2) mg/dL Disposition Clinical Impression: Leg swelling Disposition: HOME SELF-CARE Condition: Good Instructions (If sedation given, give patient instructions): Leg Edema (ED) Is patient prescribed a controlled substance at d/c from ED?: No Referrals: None,Stated [Primary Care Provider] - 1-2 days Time of Disposition: 18:46
[2022-06-27 18:26] LABS: Basophils % (A) 1 %; Eosinophils # (A) 0.1 k/uL (0-0.7); Eosinophils % (A) 2 %; HCT 41.5 % (39.0-53.0); HGB 13.4 gm/dL (13.0-17.5); Lymphocytes # (A) 1.7 k/uL (1.0-4.8); Lymphocytes % (A) 24 %; MCH 30.1 pg (25.0-35.0); MCHC 32.3 g/dL (31.0-37.0); Mean Platelet Volume 6.8; Monocytes # (A) 0.4 k/uL (0-1.0); Monocytes % (A) 6 %; Neutrophils # (A) 4.4 k/uL (1.3-7.7); Neutrophils % (A) 65 %; Platelet Count 284 k/uL (150-450); RBC 4.46 m/uL (4.30-5.90); RDW 13.4 % (11.5-15.5); WBC 6.8 k/uL (3.8-10.6)
[2022-06-27 18:35] LABS: African American GFR (CKD) >90 (>60 ml/min/1.73 sqM); Anion Gap 8 mmol/L; Blood Urea Nitrogen 11 mg/dL (9-20); Carbon Dioxide 24 mmol/L (22-30); Chloride 105 mmol/L (98-107); Glucose 87 mg/dL (74-99); Non-African American GFR(CKD) >90 (>60 ml/min/1.73 sqM); Sodium 137 mmol/L (137-145)
[2022-06-27 19:02] VITALS: BP 155/80; PULSE 71; RESP 18
== END 2022-06-27 19:04 | disposition home or self-care (01) ==
LOC: EC 15:41
DX: R22.43 Localized swelling, mass and lump, lower limb, bilateral (principal)
CPT/HCPCS: 36415; 80048; 85025; 99283

== ENCOUNTER → 2022-08-01 | Outpatient (CLI) | payer MEDICARE ==
--- NOTE | 2022-08-01 19:43 | MR ---
EXAMINATION TYPE: MR angio head wo con DATE OF EXAM: 08/01/2022 COMPARISON: NONE HISTORY: Family hx aneurysm. TECHNIQUE: Time of flight images focusing on the [place] were performed without contrast.. 2-D and 3-D postprocessing imaging is performed on independent workstation. FINDINGS: Codominant vertebral arteries. Vertebral arteries are patent to basilar junction. No signif icant focal stenosis or aneurysm in the posterior circulation. Hypoplastic bilateral posterior commun icating arteries are seen. Hypoplastic anterior commuting artery. No significant focal stenosis or aneurysm in the anterior circ ulation. IMPRESSION: No aneurysm at the level of the [place].
== END | disposition home or self-care (01) ==
LOC: RADMRIMAIN 17:58
PROVIDERS: ATTEND Internal Medicine
DX: I67.1 Cerebral aneurysm, nonruptured (principal)
CPT/HCPCS: 70544

== ENCOUNTER → 2022-09-26 | Outpatient (CLI) | payer MEDICARE, OTHER ==
[2022-09-26 11:29] LABS: African American GFR (CKD) >90 (>60 ml/min/1.73 sqM); Blood Urea Nitrogen 14 mg/dL (9-20); Non-African American GFR(CKD) >90 (>60 ml/min/1.73 sqM)
--- NOTE | 2022-09-26 11:59 | CT ---
EXAMINATION TYPE: CT angio chest DATE OF EXAM: 09/26/2022 COMPARISON: 06/22/2022 HISTORY: Follow up for PE. CT DLP: 624 mGycm CONTRAST: CT chest with contrast and 3D reconstruction with MIP imaging is performed with IV Contrast, patient injected with 100ml mL of Isovue 370. Contrast-enhanced CT of the chest was performed through the course of the pulmonary arteries with andres g and mediastinal window settings submitted. 3D reconstruction with MIP imaging was also performed. PULMONARY ARTERIES: The pulmonary arteries and their major tributaries are patent. I do not see shilo dence for sizable filling defect to suggest pulmonary embolic process. LUNGS: The lungs are clear and free of infiltrate. No evidence for atelectasis. No pulmonary nodule or mass is detected. No pleural effusion. Mild scattered subpleural fibrosis. MEDIASTINUM: Thoracic aorta is of normal caliber,however, evaluation is limited given timing of the contrast bolus. If there is concern for thoracic aortic pathology consider LISA. Correlate clinicall y . The heart is not enlarged. No evidence for mediastinal mass. No mediastinal lymph nodes greater than 1cm. HILAR STRUCTURES: No evidence for mass. No hilar lymph nodes greater than 1 cm. UPPER ABDOMEN: No significant abnormality is seen. IMPRESSION: 1. No evidence for Pulmonary embolism at this time.
== END | disposition home or self-care (01) ==
LOC: RADCTMAIN 10:30
PROVIDERS: ATTEND Internal Medicine Critical Care Medicine
DX: I26.99 Other pulmonary embolism without acute cor pulmonale (principal)
CPT/HCPCS: 82565; 84520; 71275; 36415; Q9967